=== PATIENT | female | born 1970 | race Caucasian/White ===

== ENCOUNTER 2019-02-16 15:23 | Outpatient (CLI) | payer BC ==
--- NOTE | 2019-02-16 16:01 | Diagnostic Imaging Report ---
<p>Your browser does not support iframes.</p> JENNIFER ANGELES [facility] [id number] [facility].[address] [address] Report Submission Date: Feb 16, 2019 3:54:11 PM CDT Patient Study Name: BRADLEY FISHMAN Date: Feb 16, 2019 3:26:43 PM CDT Modality Type: DX Gender: F Description: HAND 3 VIEWS OR MORE : 72 Institution: [facility] Physician: JENNIFER ANGELES Examination: Plain film right hand History: Swelling & pain from dog bite across hand x 1 hand Comparison exams: None available Findings: 3 views of the right hand demonstrate normal cortical margins. No fracture. No dislocation. No soft tissue foreign body. Impression: No acute osseous abnormality. No soft tissue foreign body. Electronically signed on Feb 16, 2019 3:54:11 PM CDT by: Rafiq CRUZ
== END 2019-02-16 15:25 ==
LOC: RAD 15:23
PROVIDERS: ATTEND Family Medicine
DX: S61.451A Open bite of right hand, initial encounter (principal); W54.0XXA Bitten by dog, initial encounter; Y99.8 Other external cause status
CPT/HCPCS: 73130